=== PATIENT | female | born 1945 | race Asian ===

== ENCOUNTER → 2017-05-06 | Outpatient (CLI) | payer MEDICARE, OTHER | END | disposition home or self-care (01) | LOC: RADPV 12:25 | PROVIDERS: ATTEND Internal Medicine | DX: I70.0 Atherosclerosis of aorta (principal); M06.9 Rheumatoid arthritis, unspecified | CPT/HCPCS: 71020 ==

== ENCOUNTER 2020-11-27 05:14 | Day surgery (SDC) | payer MEDICARE, OTHER ==
[2020-11-25 10:28] LABS: COVID AG,FIA SOURCE NASOPHARYNGEAL
[~2020-11-27] VITALS: Ht 157.5 cm; Wt 68.2 kg
[~2020-11-27 05:14] MED LIST: ASCO500 PO; CHOL200016 PO; FOLI-130 PO; KETOROLAC TROMETHAMINE 0.5% 5 ML OPHTHALMIC SOLUTION ONE; MOXIFLOXACIN HCL 0.5% 3 ML OPHTHALMIC SOLUTION ONE; MULT-1259 PO; OMEP20CA12 PO; OS500 PO; PHENYLEPHRINE HCL 2.5% 2 ML OPHTHALMIC SOLUTION ONE; RALO60 PO; RINGERS SOLUTION,LACTATED 500 ML IV ONE; ROSU10TA22 PO; SITA1TBM PO; TROPICAMIDE 1% 2 ML OPHTHALMIC SOLUTION ONE; VALS160T2 PO
[2020-11-27] MEDS ORDERED: LIDOCAINE/PF 1% 2 ML VIAL IM ONE (05:15)
[2020-11-27] MEDS ORDERED: FentaNYL CITRATE PF 100 MCG/2 ML VIAL IVP ONE (05:15)
[2020-11-27] MEDS ORDERED: TETRACAINE HCL/PF 0.5% 4 ML OPHTHALMIC SOLUTION OU ONE (05:15)
[2020-11-27] MEDS ORDERED: POVIDONE-IODINE 10% 15 ML SOLUTION UD TP ONE (05:15)
[2020-11-27] MEDS ORDERED: MIDAZOLAM HCL 2 MG/2 ML VIAL IVP ONE (05:15)
[2020-11-27] MEDS ORDERED: LIDOCAINE 2%/EPI 1:200,000/PF 10 ML VIAL IM ONE (05:15)
[2020-11-27] MEDS ORDERED: BALANCED SALT 15 ML OPHTHALMIC IRRIG.SOLN IO ONE (05:15)
[2020-11-27] MEDS ORDERED: EPINEPHrine 1:1,000 [1 MG/ML] AMP IM ONE (05:15)
[2020-11-27] MEDS ORDERED: RINGERS SOLUTION,LACTATED 500 ML IV ONE (05:30)
[2020-11-27] MEDS: KETOROLAC TROMETHAMINE 0.5% 5 ML OPHTHALMIC SOLUTION OD SCH ×3 (06:04→06:16)
[2020-11-27] MEDS: TROPICAMIDE 1% 2 ML OPHTHALMIC SOLUTION OD SCH ×3 (06:04→06:16)
[2020-11-27] MEDS: MOXIFLOXACIN HCL 0.5% 3 ML OPHTHALMIC SOLUTION OD SCH ×3 (06:04→06:16)
[2020-11-27] MEDS: PHENYLEPHRINE HCL 2.5% 2 ML OPHTHALMIC SOLUTION OD SCH ×3 (06:04→06:17)
[2020-11-27 06:27] LABS: GLUCOMETER DEV NAME(LOC) SDS.; GLUCOSE,POINT OF CARE 107 MG/DL (70-110)
== END 2020-11-27 08:15 | disposition home or self-care (01) ==
LOC: SURGERY 05:14
PROVIDERS: ATTEND Ophthalmology
DX: H25.11 Age-related nuclear cataract, right eye (principal); E11.36 Type 2 diabetes mellitus with diabetic cataract; E78.00 Pure hypercholesterolemia, unspecified; I10 Essential (primary) hypertension; Z95.0 Presence of cardiac pacemaker
CPT/HCPCS: 66984; 82962; 87426; 93005; C9803; J0171; J2250; J3010; J3490; J7120; V2632

== ENCOUNTER 2021-01-01 09:06 | Day surgery (SDC) | payer MEDICARE, OTHER ==
[2020-12-30 11:04] LABS: COVID AG,FIA SOURCE NASOPHARYNGEAL
[~2021-01-01] VITALS: Ht 154.9 cm; Wt 71.8 kg
[~2021-01-01 09:06] MED LIST changes: -ROSU10TA22 PO; +ROSU10TA72 PO
[2021-01-01] MEDS ORDERED: POVIDONE-IODINE 10% 15 ML SOLUTION UD TP ONE (09:07)
[2021-01-01] MEDS ORDERED: FentaNYL CITRATE PF 100 MCG/2 ML VIAL IVP ONE (09:07)
[2021-01-01] MEDS ORDERED: CHONDR SULF A SOD/HYALURONATE 1.05 ML KIT IO ONE (09:07)
[2021-01-01] MEDS ORDERED: MIDAZOLAM HCL 2 MG/2 ML VIAL IVP ONE (09:07)
[2021-01-01] MEDS ORDERED: EPINEPHrine 1:1,000 [1 MG/ML] AMP IM ONE (09:07)
[2021-01-01] MEDS: PHENYLEPHRINE HCL 2.5% 2 ML OPHTHALMIC SOLUTION OS SCH ×3 (10:04→10:18)
[2021-01-01] MEDS: KETOROLAC TROMETHAMINE 0.5% 5 ML OPHTHALMIC SOLUTION OS SCH ×3 (10:04→10:18)
[2021-01-01] MEDS: MOXIFLOXACIN HCL 0.5% 3 ML OPHTHALMIC SOLUTION OS SCH ×3 (10:04→10:18)
[2021-01-01] MEDS: TROPICAMIDE 1% 2 ML OPHTHALMIC SOLUTION OS SCH ×3 (10:04→10:18)
[2021-01-01] MEDS ORDERED: RINGERS SOLUTION,LACTATED 500 ML IV ONE (10:30)
== END 2021-01-01 13:15 | disposition home or self-care (01) ==
LOC: SURGERY 09:06
PROVIDERS: ATTEND Ophthalmology
DX: E11.36 Type 2 diabetes mellitus with diabetic cataract (principal); H25.12 Age-related nuclear cataract, left eye; I10 Essential (primary) hypertension; E78.00 Pure hypercholesterolemia, unspecified; M19.90 Unspecified osteoarthritis, unspecified site; Z79.899 Other long term (current) drug therapy; Z98.890 Other specified postprocedural states; Z95.0 Presence of cardiac pacemaker
CPT/HCPCS: 66984; 87426; A9575; C9803; J0171; J2250; J3010; J7120; V2632